=== PATIENT | female | born 1995 | race Caucasian/White ===

== ENCOUNTER 2017-03-13 19:33 | Emergency (ER) | payer OTHER ==
[~2017-03-13] VITALS: Ht 165.1 cm; Wt 113.4 kg
[2017-03-13] MEDS ORDERED: ERYTHROMYCIN250 MG PO (19:48)
[2017-03-13] MEDS ORDERED: TYLENOL EXTRA500 MG PO (19:48)
[2017-03-13] MEDS ORDERED: IBUPROFEN 400400 M2 PO (19:48)
[2017-03-13 20:26] LABS: ABSOLUTE LYMPHOCYTES 2.5 thou/uL (0.8-5.3); ABSOLUTE MONOCYTES 0.8 thou/uL (0.0-1.2); ABSOLUTE NEUTROPHILS 5.4 thou/uL (1.6-8.1); BASOPHILS 0.4 %; EOSINOPHILS 0.5 %; HEMATOCRIT 39.1 % (37.0-47.0); HEMOGLOBIN 13.2 gm/dL (12.0-15.0); LYMPHOCYTES 28.4 %; MCH 29.3 pg (26.0-34.0); MCHC 33.7 g/dL (28.0-37.0); MCV 86.8 fL (80.0-100.0); MONOCYTES 9.4 %; MPV 8.9 fl. (7.2-11.1); NUCLEATED RBCS 0 /100WBC; PLATELET COUNT* 263 thou/uL (150-400); POLYS 61.3 %; RDW-CV 14.7 % (10.5-14.5); WBC 8.8 thou/uL (4.0-11.0)
[2017-03-13 20:37] LABS: CALCIUM 8.7 mg/dL (8.5-10.1); CREATININE 0.8 mg/dL (0.6-1.3); POTASSIUM 3.5 mmol/L (3.5-5.1)
[2017-03-13 20:41] LABS: ALBUMIN 3.1 g/dL (3.4-5.0); TOTAL BILIRUBIN 0.6 mg/dL (<0.1-1.0); TOTAL PROTEIN 7.7 g/dL (6.4-8.2)
[2017-03-13] MEDS ORDERED: DEXAMETHASONE 44 M1 PO (22:30)
[2017-03-13] MEDS ORDERED: CLEOCIN HCL300 MG PO (22:30)
[2017-03-13 22:40] VITALS: BP 132/72
== END 2017-03-13 22:42 | disposition home or self-care (01) ==
LOC: M.ERS 19:33
PROVIDERS: Nurse Practitioner Family
DX: J03.90 Acute tonsillitis, unspecified (principal)

== ENCOUNTER 2018-11-18 12:01 | Emergency (ER) | payer OTHER ==
[~2018-11-18] VITALS: Ht 165.1 cm; Wt 113.4 kg
[~2018-11-18 12:01] MED LIST: CLEOCIN HCL300 MG PO; DEXAMETHASONE 44 M1 PO; ERYTHROMYCIN250 MG PO; IBUPROFEN 400400 M2 PO; TYLENOL EXTRA500 MG PO
[2018-11-18] MEDS ORDERED: SERTRALINE HCL50 MG PO (12:07)
[2018-11-18] MEDS ORDERED: TRAZODONE HCL50 MG PO (12:07)
[2018-11-18 12:26] LABS: ABSOLUTE BASOPHILS 0.1 thou/uL (0.0-0.2); ABSOLUTE EOSINOPHILS 0.2 thou/uL (0.0-0.7); ABSOLUTE MONOCYTES 0.5 thou/uL (0.0-1.2); ABSOLUTE NEUTROPHILS 4.5 thou/uL (1.6-8.1); EOSINOPHILS 2.7 %; HEMATOCRIT 41.9 % (37.0-47.0); HEMOGLOBIN 14.6 gm/dL (12.0-15.0); LYMPHOCYTES 27.4 %; MCH 31.4 pg (26.0-34.0); MCHC 34.8 g/dL (28.0-37.0); MCV 90.3 fL (80.0-100.0); MONOCYTES 7.1 %; MPV 8.1 fl. (7.2-11.1); NUCLEATED RBCS 0 /100WBC; PLATELET COUNT* 249 thou/uL (150-400); POLYS 61.8 %; RBC 4.64 mil/uL (4.20-5.00); RDW-CV 13.9 % (10.5-14.5); WBC 7.2 thou/uL (4.0-11.0)
[2018-11-18 12:34] LABS: ANION GAP 13 mmol/L (7-16); BUN 11 mg/dL (7-18); CALCIUM 8.3 mg/dL (8.5-10.1); CHLORIDE 107 mmol/L (98-107); CO2 22 mmol/L (21-32); CREATININE 0.9 mg/dL (0.6-1.3); GLUCOSE 100 mg/dL (70-99); POTASSIUM 3.4 mmol/L (3.5-5.1); SODIUM 142 mmol/L (136-145)
[2018-11-18 12:43] LABS: ALBUMIN 3.6 g/dL (3.4-5.0); ALKALINE PHOSPHATASE 60 U/L (46-116); LIPASE 78 U/L (73-393); SGOT 16 U/L (15-37); SGPT 21 U/L (30-65); TOTAL BILIRUBIN 0.8 mg/dL (<0.1-1.0); TOTAL PROTEIN 7.2 g/dL (6.4-8.2); TROPONIN-I LEVEL <0.06 ng/mL (<0.06)
[2018-11-18] MEDS ORDERED: IBUPROFEN 800800 M1 PO (14:23)
[2018-11-18] MEDS ORDERED: NORCO 5-325 TA1 EAC1 PO (14:23)
[2018-11-18] MEDS ORDERED: FLEXERIL PO (14:23)
[2018-11-18 14:38] VITALS: BP 136/71
--- NOTE | 2018-11-19 12:18 | EKG ---
[place] [address] ELECTROCARDIOGRAM REPORT Name: BRANDEN ANTHONY [id number] Admission: 11/18/18 Attend Phys: Discharge: 11/18/18 Date of : [birth year] Report #: [id number] THIS REPORT FOR: //name// [facility] ED Test Date: 2018-11-18 Test Time: 12:20:30 Pat Name: BRANDEN ANTHONY Department: Room: Gender: F Junior Systems Engineer: SHARDA : 1995 Requested By: Pancho Kinney Order Number: [id number] MD: Abdiel Moore Measurements Intervals [place] Rate: 113 P: 64 KS: 168 QRS: 31 QRSD: 79 T: 14 QT: 324 QTc: 445 Interpretive Statements Sinus tachycardia Borderline T wave abnormalities No previous ECG available for comparison Electronically Signed On 11-19-2018 12:17:45 CDT by Abdiel Moore [email or web address] <ELECTRONICALLY SIGNED> By: Abdiel Moore MD, [facility] 11/19/18 1217 1220 1220 Abdiel Moore MD, FACC /EPI
== END 2018-11-18 14:41 | disposition home or self-care (01) ==
LOC: M.ERS 12:01
PROVIDERS: Emergency Medicine Emergency Medical Services
DX: R56.9 Unspecified convulsions (principal); F41.9 Anxiety disorder, unspecified

== ENCOUNTER 2018-11-19 08:55 | Emergency (ER) | payer OTHER ==
[~2018-11-19] VITALS: Ht 165.1 cm; Wt 113.0 kg
[~2018-11-19 08:55] MED LIST changes: +FLEXERIL PO; +IBUPROFEN 800800 M1 PO; +NORCO 5-325 TA1 EAC1 PO; +SERTRALINE HCL50 MG PO; +TRAZODONE HCL50 MG PO
[2018-11-19 11:27] VITALS: BP 125/84
== END 2018-11-19 11:27 | disposition home or self-care (01) ==
LOC: M.ERS 08:55
DX: S03.01XA Dislocation of jaw, right side, initial encounter (principal); X58.XXXA Exposure to other specified factors, initial encounter; Y93.89 Activity, other specified; Y92.89 Other specified places as the place of occurrence of the external cause; Y99.8 Other external cause status